=== PATIENT | female | born 2000 | race Caucasian/White ===

== ENCOUNTER 2024-02-05 20:46 | Emergency (ER) | payer OTHER, SELFPAY ==
[2024-02-05 21:25] VITALS: BP 138/91; PULSE 86; RESP 16; TEMP 36.3; O2SAT 98
[2024-02-06] MEDS: DICYCLOMINE HCL 10 MG CAPSULE 20 MG PO (00:48)
[2024-02-06] MEDS: FAMOTIDINE 20 MG TABLET PO (00:48)
[2024-02-06] MEDS: ONDANSETRON HCL ODT 4 MG TABLET PO (00:50)
[2024-02-06 01:01] VITALS: BP 123/84; PULSE 78; RESP 16; O2SAT 99
--- NOTE | 2024-02-06 05:28 | ED.NAVMDI ---
HPI - Nausea/Vomiting/Diarrhea General Chief complaint: Nausea/Vomiting/Diarrhea Stated complaint: n/v/d for 4 days, abd cramps Time Seen by Provider: 02/06/24 00:38 History of Present Illness HPI Narrative: Patient presenting here with nausea and with feels like heartburn, she is concerned she may have an ulcer. Has been ongoing for the last few days, she has also been taking a lot of naproxen for back pain. Related Data Home Medications Medication Instructions Recorded Confirmed levothyroxine 50 mcg tablet 50 mcg PO DAILY 06/13/22 11/22/23 cholecalciferol (vitamin D3) 1,250 1,250 mcg PO WEEKLY 08/18/22 11/22/23 mcg (50,000 unit) capsule testosterone cypionate 100 mg/mL 25 mg IM WEEKLY 08/17/23 11/22/23 intramuscular oil Allergies Allergy/AdvReac Type Severity Reaction Status Date / Time No Known Allergies Allergy Verified 02/05/24 20:47 Review of Systems Review of Systems: CONST: No fever. HEENT: No sore throat C/V: No chest pain RESP: No cough GI: Reports epigastric abdominal pain, nausea : No dysuria. M/S: No joint pain. SKIN: No rash. NEURO: [No headache or focal numbness or weakness] PSYCH: [No depression] [facility] Surgical History Surgical History Hx of foot surgery (~10/08/20) Left foot [place] teeth extracted Family History Family History Father Adopted Mother Breast cancer Social History Social History Smoking status: Never smoker Second hand tobacco smoke exposure: No Alcohol intake: current Alcohol use details: rare, < 1 per month Substance use: never Substance use type: does not use Lack of Transportation: No Lack of Food: Never True Current Housing: I Have Housing Concerned About Future Housing: No Difficulty Paying Gas/Electric Bills: No Difficulty Paying for Meds: No Currently Unemployed: No Education: Associate Degree Difficulty w/ Childcare or Family Care: No Living arrangements: with family Additional living arrangements comments: With parents Occupation/Education: occupation Gender identity (if verbalized by the patient): Transgender Male Additional gender identity comments: Prefers to go by Ananda. Spiritual care concerns: No Exam Narrative: EXAMINATION OF ORGAN SYSTEMS/BODY AREAS: Constitutional: Vital signs per nursing GENERAL:[No acute distress, non-toxic appearing.] HEAD: Normal with no signs of head trauma. EYES: EOMI, conjunctiva normal ENT: Hearing grossly intact LUNGS: Nonlabored breathing. HEART: [Regular rate and rhythm] ABD: [Soft], [nontender to palpation] EXT: Normal range of motion SKIN: [No rashes or lesions.] NEURO: [Alert and oriented x 3. No gross focal sensory or strength deficits.] PSYCH: Normal affect Course Vital Signs Vital signs: Vital Signs Temperature 97.3 F L 02/05/24 21:25 Pulse Rate 86 02/05/24 21:25 Respiratory Rate 16 02/05/24 21:25 Blood Pressure 138/91 H 02/05/24 21:25 Pulse Oximetry 98 02/05/24 21:25 Oxygen Delivery Room Air 02/05/24 21:25 Temperature 97.3 F L 02/05/24 21:25 Pulse Rate 78 02/06/24 01:01 Respiratory Rate 16 02/06/24 01:01 Blood Pressure 123/84 02/06/24 01:01 Pulse Oximetry 99 02/06/24 01:01 Oxygen Delivery Room Air 02/05/24 21:25 MDM - Nausea/Vomiting/Diarrhea MDM Narrative Medical decision making narrative: Patient presenting with nausea epigastric discomfort for last few days and increase use of NSAIDs, she is well-appearing here, abdomen soft nontender, have low concern for pancreatitis given benign exam, and no risk factors, I suspect more likely gastritis/GERD or PUD, she is given Zofran and Pepcid with some improvement, I will have her follow-up with GI doctor and give her return precautions and prescriptions and information on
== END 2024-02-06 01:04 | disposition home or self-care (01) ==
LOC: ANHED 02-06 00:55
PROVIDERS: Emergency Provider Emergency Medicine; PCP Family Medicine Adolescent Medicine
DX: R11.0 Nausea (principal); R10.13 Epigastric pain; F64.0 Transsexualism
CPT/HCPCS: 99283; A9270

== ENCOUNTER 2024-03-21 09:38 | Outpatient (CLI) | payer OTHER, SELFPAY ==
--- NOTE | ~2024-03-21 | CT_ITS ---
CT of the Abdomen and Pelvis: Indication: Abdominal pain Technique: 2.5 mm axial scans were obtained through the abdomen and pelvis following intravenous adm inistration of 100 cc of Omnipaque 350. Dose reduction technique was used on this scan by utilizing a utomated exposure control and iterative reconstruction technique. The dose-length product (DLP) was 1 303.42 mGy-cm. Findings: Scans through the lung bases are unremarkable. The liver, spleen, pancreas, gallbladder, adrenals and kidneys are within normal limits. No evidence of aortic aneurysm. No lymphadenopathy. No bowel obstruction or bowel wall thickening. There is no evidence to suggest acute appendicitis. Images through the pelvis were performed. Urinary bladder unremarkable. No pelvic mass seen. No ascit es. Impression: No significant abnormalities seen. Reviewed, dictated and finalized at location . Impression: No significant abnormalities seen.
== END 2024-03-21 09:39 | disposition home or self-care (01) ==
PROVIDERS: PCP Family Medicine Adolescent Medicine; Visit Provider Nurse Practitioner Family
DX: R10.12 Left upper quadrant pain (principal); R11.2 Nausea with vomiting, unspecified
CPT/HCPCS: 74177; Q9967

== ENCOUNTER 2024-03-27 01:06 | Day surgery (SDC) | payer OTHER, SELFPAY ==
[2024-03-20 09:12] VITALS: BMI 42.7
[2024-03-27 11:14] VITALS: BP 120/65; PULSE 99; RESP 19; TEMP 36.5; O2SAT 99
[2024-03-27] MEDS: LACTATED RINGERS 1,000 ML 150 ML IV CONT (11:26)
--- NOTE | 2024-03-27 11:34 | WPDANESEPPF ---
Anes - Initial Pre Proc Eval Procedure: Operation Date: 03/27/24 15:00 Proposed Procedures p Esophagogastroduodenoscopy - Yves Liriano MD Date/Time: 03/27/24 11:34 Surgeon: Yves Liriano MD Pre Op Diagnosis: LLQ pain, N&V Patient Data Age: 23 Gender: F Height: 1.57 m Weight: 104.3 kg Last Vital Signs Temp 97.7 F 03/27/24 11:14 Pulse 99 03/27/24 11:14 Resp 19 03/27/24 11:14 BP 120/65 03/27/24 11:14 Pulse Ox 99 03/27/24 11:14 O2 Del Method Room Air 03/27/24 11:14 Allergies Allergy/AdvReac Type Severity Reaction Status Date / Time capsaicin Allergy Rash Verified 03/27/24 11:18 Home Medications Medication Instructions Recorded Confirmed Type levothyroxine 50 mcg tablet 50 mcg PO DAILY 06/13/22 03/20/24 History cholecalciferol (vitamin D3) 1,250 1,250 mcg PO WEEKLY 08/18/22 03/20/24 History mcg (50,000 unit) capsule testosterone cypionate 100 mg/mL 25 mg IM WEEKLY 08/17/23 03/20/24 History intramuscular oil bupropion HCl 300 mg 24 hr tablet, 300 mg PO QAM #90 tabs 10/11/23 03/20/24 Rx extended release duloxetine 30 mg capsule,delayed 30 mg PO DAILY #90 caps 11/22/23 03/20/24 Rx release famotidine 20 mg tablet 20 mg PO DAILY #30 tabs 03/11/24 03/20/24 Rx pantoprazole 40 mg tablet,delayed 40 mg PO BID #60 tabs 03/11/24 03/20/24 Rx release dicyclomine 20 mg tablet 20 mg PO TID PRN abdominal pain 03/25/24 03/27/24 Rx #20 tabs ondansetron 4 mg disintegrating 4 mg PO Q8H PRN nausea and 03/26/24 03/27/24 Rx tablet vomiting #10 tabs Patient hx anesthesia problems: none Family hx anesthesia problems: none Results Review: All pre-operative results and documents have been reviewed as part of the pre-operative evaluation. [facility] Surgical History Surgical History Hx of foot surgery (~10/08/20) Left foot [place] teeth extracted Family History Family History Father Adopted Mother Breast cancer Social History Social History Smoking status: Never smoker Second hand tobacco smoke exposure: No Alcohol intake: current Alcohol use details: rare, < 1 per month Substance use: current Substance use type: marijuana Lack of Transportation: No Lack of Food: Never True Current Housing: I Have Housing Concerned About Future Housing: No Difficulty Paying Gas/Electric Bills: No Difficulty Paying for Meds: No Currently Unemployed: No Education: Associate Degree Difficulty w/ Childcare or Family Care: No Living arrangements: with roommate(s) Additional living arrangements comments: With parents Occupation/Education: occupation Gender identity (if verbalized by the patient): Transgender Male Additional gender identity comments: Prefers to go by Ananda. Spiritual care concerns: No Anes - Eval Final PreProcedure Day of Procedure 03/27/24 11:34 Patient weight: morbidly obese Heart: regular rate and rhythm Lungs: clear to auscultation Airway: Mallampati scale class III Neurological: alert and oriented Last oral intake: >/= 8 hours ASA classification: III Emergent: no Anesthetic plan: proceed Anesthesia type and monitoring: general GIVS and standard monitoring Results Review: All pre-operative results and documents have been reviewed as part of the pre-operative evaluation. Informed Consent: The patient's anesthetic plan and its attendant risks and benefits were discussed with the patient/family/POA. Questions were solicited and answers provided to the satisfaction of the patient/family/POA.
--- NOTE | 2024-03-27 12:16 | PM.HPGS ---
History of Present Illness History of Present Illness Consent: Risks, benefits, and alternatives have been discussed and questions answered. Patient agrees to proceed with procedure. Chief complaint: LLQ pain, N&V Narrative: Ange Browne is a 23 year old female here with cyclic nausea and vomiting- she takes warm showers when sick, recent CT scan a/p normal, smokes marijuana. Review of Systems Review of Systems: All systems reviewed & are unremarkable except as noted in HPI and below PMFSH Past Medical History Medical History (Updated 03/27/24 @ 12:17 by Yves Liriano MD) Cyclic vomiting syndrome Marijuana smoker Surgical History Surgical History Hx of foot surgery (~10/08/20) Left foot [place] teeth extracted Family History Family History Father Adopted Mother Breast cancer Social History Social History Smoking status: Never smoker Second hand tobacco smoke exposure: No Alcohol intake: current Alcohol use details: rare, < 1 per month Substance use: current Substance use type: marijuana Lack of Transportation: No Lack of Food: Never True Current Housing: I Have Housing Concerned About Future Housing: No Difficulty Paying Gas/Electric Bills: No Difficulty Paying for Meds: No Currently Unemployed: No Education: Associate Degree Difficulty w/ Childcare or Family Care: No Living arrangements: with roommate(s) Additional living arrangements comments: With parents Occupation/Education: occupation Gender identity (if verbalized by the patient): Transgender Male Additional gender identity comments: Prefers to go by [facility]. Spiritual care concerns: No Meds Home Medications and Allergies Home Medications Medication Instructions Recorded Confirmed Type levothyroxine 50 mcg tablet 50 mcg PO DAILY 06/13/22 03/20/24 History cholecalciferol (vitamin D3) 1,250 1,250 mcg PO WEEKLY 08/18/22 03/20/24 History mcg (50,000 unit) capsule testosterone cypionate 100 mg/mL 25 mg IM WEEKLY 08/17/23 03/20/24 History intramuscular oil bupropion HCl 300 mg 24 hr tablet, 300 mg PO QAM #90 tabs 10/11/23 03/20/24 Rx extended release duloxetine 30 mg capsule,delayed 30 mg PO DAILY #90 caps 11/22/23 03/20/24 Rx release famotidine 20 mg tablet 20 mg PO DAILY #30 tabs 03/11/24 03/20/24 Rx pantoprazole 40 mg tablet,delayed 40 mg PO BID #60 tabs 03/11/24 03/20/24 Rx release dicyclomine 20 mg tablet 20 mg PO TID PRN abdominal pain 03/25/24 03/27/24 Rx #20 tabs ondansetron 4 mg disintegrating 4 mg PO Q8H PRN nausea and 03/26/24 03/27/24 Rx tablet vomiting #10 tabs Allergies Allergy/AdvReac Type Severity Reaction Status Date / Time capsaicin Allergy Rash Verified 03/27/24 11:18 Vital Signs Vital Signs - 24 hr 03/27/24 11:14 Temperature 97.7 F Pulse Rate 99 Respiratory Rate 19 Blood Pressure 120/65 Pulse Oximetry 99 Oxygen Delivery Room Air Exam Const: General: comfortable and no acute distress HENMT: Face/Nose/Sinus: Normal nares present Eyes: General: appearance normal, both eyes and all related structures Neck: Neck: no JVD Resp: Auscultation: clear to auscultation bilaterally Cardio: Rate: regular rate Rhythm: regular rhythm GI: Inspection: non-distended GI Palp: Yes Soft to palpation Skin: General skin exam: normal color Neuro: General: gait normal Speech: normal speech Extrem: General: normal to inspection Psych: Mental Status: mental status grossly normal Assessment and Plan Assessment and plan (1) N&V (nausea and vomiting): Code(s): R11.2 - Nausea with vomiting, unspecified Status: Acute Assessment and Plan: egd with bx ? elated to marijuana (2) Cyclic vomiting syndrome: Code(s): R11.15 - Cyclical
[2024-03-27 12:24] VITALS: BP 102/61; PULSE 101; RESP 24; O2SAT 94
[2024-03-27 12:34] VITALS: BP 108/68; PULSE 91; RESP 23; O2SAT 100
[2024-03-27 12:44] VITALS: BP 105/72; PULSE 71; RESP 23; O2SAT 100
== END 2024-03-27 12:50 | disposition home or self-care (01) ==
PROVIDERS: PCP Family Medicine Adolescent Medicine; Visit Provider Internal Medicine Gastroenterology
PROC: 0DJ08ZZ Inspection of Upper Intestinal Tract, Via Natural or Artificial Opening Endoscopic (ICD-10-PCS; CPT 43235; principal; 2024-03-27 15:00)
DX: K21.00 Gastro-esophageal reflux disease with esophagitis, without bleeding (principal); K29.50 Unspecified chronic gastritis without bleeding; K44.9 Diaphragmatic hernia without obstruction or gangrene; F12.90 Cannabis use, unspecified, uncomplicated; R11.15 Cyclical vomiting syndrome unrelated to migraine; E66.01 Morbid (severe) obesity due to excess calories; Z68.41 Body mass index [BMI] 40.0-44.9, adult; F64.0 Transsexualism
CPT/HCPCS: 43239; 88305; J2704; J7120